=== PATIENT | male | born 1985 | race African-American/Black ===

== ENCOUNTER 2021-09-05 14:44 | Emergency (ER) | payer BC, SELFPAY ==
[2021-09-05 16:08] VITALS: BP 126/74; PULSE 93; RESP 16; TEMP 37.5; O2SAT 100
--- NOTE | 2021-09-05 17:31 | ED.URI ---
HPI - URI/Sore Throat General Chief Complaint: Upper Respiratory Infection Stated Complaint: Chest Tightness Time Seen by Provider: 09/05/21 17:31 Source: patient, RN notes reviewed and old records reviewed Mode of arrival: ambulatory Limitations: no limitations History of Present Illness HPI Narrative: 36 year old male who presents to [facility] care with complaints of being exposed to someone who is COVID positive on the day before [place] and he developed nasal drainage, sore throat and some cough with chest tightness on [place]. Patient has not been vaccinated for COVID or flu. Patient has not taken any over the counter medications for his symptoms. Patient does have history of tobacco abuse, he reports no dyspnea, no tachypnea noted with SAO2 100% on room air. Related Data Home Medications Medication Instructions Recorded Confirmed cyclobenzaprine 5 mg PO TID PRN 09/05/21 09/05/21 diazepam 5 mg PO BID PRN 09/05/21 09/05/21 quetiapine 25 mg PO HS 09/05/21 09/05/21 tadalafil 10 mg PO DAILY 09/05/21 09/05/21 Allergies Allergy/AdvReac Type Severity Reaction Status Date / Time No Known Allergies Allergy Verified 09/05/21 16:13 Review of Systems Review of Systems: CONSTITUTIONAL: Denies known fever, chills, or sweats. EYES: Denies visual changes, redness, or discharge. ENT:Positive for rhinorrhea, congestion, sore throat, no otalgia. CARDIOVASCULAR: Denies chest pain, palpitations, or edema.reports chest tightness with breathing. RESPIRATORY: Positive for cough denies dyspnea. GASTROINTESTINAL: Denies abdominal pain, nausea, vomiting, or diarrhea. GENITOURINARY: Denies dysuria or hematuria. SKIN: Denies rash or itching. MUSCULOSKELETAL: Denies back pain, joint pain, or myalgia. NEUROLOGIC: Denies headache, numbness, or weakness. PSYCHIATRIC: Positive for anxiety or depression. All systems reviewed & are unremarkable except as noted in HPI and below PMFSH Past Medical History Medical History (Updated 09/07/21 @ 11:40 by Lauren Borja NP) Anxiety Exposure to COVID-19 virus Surgical History Surgical History (Updated 09/07/21 @ 11:35 by Lauren Borja NP) No history of previous surgery Social History Social History (Updated 09/07/21 @ 11:35 by Lauren Borja NP) Smoking status: Current every day smoker Tobacco type: cigarettes Alcohol intake: unknown Substance use: unknown Living arrangements: with family Gender identity (if verbalized by the patient): Male Comments At time of signature, agree with nursing past medical, surgical, social and family history. There is no relevant family history pertinent to the presenting complaint Exam Narrative: GENERAL: Well-appearing, well-nourished, and in no acute distress. HEAD: Normocephalic, atraumatic. EYES: PERRLA and EOMI. ENT: Nares patent with clear rhinorrhea no epistaxis. Mucous membranes moist.TM's normal with good light reflex, throat red with no lesions or exudates or tonsil swelling post nasal drainage NECK: Supple.no lymphadenopathy CHEST: Clear to auscultation. No respiratory distress.dry cough with SAO2 100% on room air HEART: Regular rate and rhythm. No murmur heard. Normal peripheral pulses. ABDOMEN: Soft, nontender, nondistended, normal active bowel sounds. EXTREMITIES: Normal range of motion. No edema. SKIN: Warm, dry, no rash. NEURO: No focal deficits. Alert and oriented x3. Course Vital Signs Vital signs: Vital Signs Temperature 37.5 C 09/05/21 16:08 Pulse Rate 93 09/05/21 16:08 Respiratory Rate 16 09/05/21 16:08 Blood Pressure 126/74 09/05/21 16:08 Pulse Oximetry 100 09/05/21 16:08 Temperature 37.5 C 09/05/21 16:08 Pulse Rate 93 09/05/21 16:08 Respiratory Rate 16 09/05/21 16:08 Blood Pressure 126/74 09/05/21 16:08 Pulse Oximetry 100 09/05/21 16:08 MDM - URI/Sore Throat Differential Diagnosis Differential diagnosis: Likely upper respiratory infection, sinusitis, viral inf
--- NOTE | 2021-09-05 18:10 | ED.URI ---
HPI - URI/Sore Throat General Chief Complaint: Upper Respiratory Infection Stated Complaint: Chest Tightness Time Seen by Provider: 09/05/21 17:31 Source: patient, RN notes reviewed and old records reviewed Mode of arrival: ambulatory Limitations: no limitations Related Data Home Medications Medication Instructions Recorded Confirmed cyclobenzaprine 5 mg PO TID PRN 09/05/21 09/05/21 diazepam 5 mg PO BID PRN 09/05/21 09/05/21 quetiapine 25 mg PO HS 09/05/21 09/05/21 tadalafil 10 mg PO DAILY 09/05/21 09/05/21 Allergies Allergy/AdvReac Type Severity Reaction Status Date / Time No Known Allergies Allergy Verified 09/05/21 16:13 Review of Systems Review of Systems: CONSTITUTIONAL: Denies fever, chills, or sweats. EYES: Denies visual changes, redness, or discharge. ENT: Denies rhinorrhea, congestion, sore throat, or otalgia. CARDIOVASCULAR: Denies chest pain, palpitations, or edema. RESPIRATORY: Denies cough or dyspnea. GASTROINTESTINAL: Denies abdominal pain, nausea, vomiting, or diarrhea. GENITOURINARY: Denies dysuria or hematuria. SKIN: Denies rash or itching. MUSCULOSKELETAL: Denies back pain, joint pain, or myalgia. NEUROLOGIC: Denies headache, numbness, or weakness. PSYCHIATRIC: Denies anxiety or depression. All systems reviewed & are unremarkable except as noted in HPI and below PMFSH Comments At time of signature, agree with nursing past medical, surgical, social and family history. There is no relevant family history pertinent to the presenting complaint Exam Narrative: GENERAL: Well-appearing, well-nourished, and in no acute distress. HEAD: Normocephalic, atraumatic. EYES: PERRLA and EOMI. ENT: Nares clear, no rhinorrhea or epistaxis. Mucous membranes moist. NECK: Supple. CHEST: Clear to auscultation. No respiratory distress. HEART: Regular rate and rhythm. No murmur heard. Normal peripheral pulses. ABDOMEN: Soft, nontender, nondistended, normal active bowel sounds. EXTREMITIES: Normal range of motion. No edema. SKIN: Warm, dry, no rash. NEURO: No focal deficits. Alert and oriented x3. Course Vital Signs Vital signs: Vital Signs Temperature 37.5 C 09/05/21 16:08 Pulse Rate 93 09/05/21 16:08 Respiratory Rate 16 09/05/21 16:08 Blood Pressure 126/74 09/05/21 16:08 Pulse Oximetry 100 09/05/21 16:08 Temperature 37.5 C 09/05/21 16:08 Pulse Rate 93 09/05/21 16:08 Respiratory Rate 16 09/05/21 16:08 Blood Pressure 126/74 09/05/21 16:08 Pulse Oximetry 100 09/05/21 16:08 MDM - URI/Sore Throat Differential Diagnosis Differential diagnosis: Likely upper respiratory infection, viral infection and pharyngitis Medical Records Attestation: I reviewed the patient's medical records. Lab Data Attestation: I reviewed the patient's lab results. Lab results narrative: Strep negative Covid antigen negative Labs: Lab Results 09/05/21 Range/Units 17:41 POC SARS CoV-2 Ag Negative (Negative) Strep Screen Presumptive Negative *(Reference Range: Negative)* Critical Care Time Critical Care Time Critical Care Time: No Discharge Plan Discharge Clinical Impression: Upper respiratory infection Patient Disposition: Home, Self-Care Condition: Stable Instructions: Antibiotic Form Additional Instructions: Increase fluids especially juices and water [id number] cough and cold medicine of your choice for your symptoms Tylenol ibuprofen for any fever pain Zyrtec or Claritin include Sudafed while having symptoms Steroids as directed--take with food heat to the face 20-30 minutes 4-6 times a day for pain Salt water gargles, throat lozenges or throat sprays as desired PCR Covid through drive-through If your symptoms persist, change or worsen significantly before you can contact your personal physician then please, without delay, go to the emergency department for further evaluation. Follow-up with PCP
== END 2021-09-05 18:23 | disposition home or self-care (01) ==
PROVIDERS: Emergency Provider Registered Nurse; PCP Nurse Practitioner Adult Health
DX: J06.9 Acute upper respiratory infection, unspecified (principal); Z20.822 Contact with and (suspected) exposure to COVID-19; F17.200 Nicotine dependence, unspecified, uncomplicated
CPT/HCPCS: 87081; 87426; 87880; 99213; C9803; G0463

== ENCOUNTER → 2021-09-08 01:09 | Outpatient (CLI) | payer BC, SELFPAY ==
[2021-09-08 20:43] LABS: SARS-CoV-2 RNA PCR Positive
== END ==
PROVIDERS: PCP Nurse Practitioner Adult Health; Visit Provider Registered Nurse
DX: U07.1 COVID-19 (principal)
CPT/HCPCS: C9803; U0003; U0005

== ENCOUNTER 2022-01-05 13:17 | Emergency (ER) | payer BC, SELFPAY ==
[2022-01-05 13:26] VITALS: BP 101/88; PULSE 100; RESP 16; TEMP 36.6; O2SAT 96
--- NOTE | 2022-01-05 13:51 | ED.UPPEXIN ---
HPI - Extremity Injury (Upper) General Chief Complaint: Extremity Injury, Upper Stated Complaint: right sided shoulder pain Time Seen by Provider: 01/05/22 13:19 History of Present Illness HPI narrative: 36-year-old male presents to the emergency room for evaluation of right shoulder pain that has been present for 5 years. Patient reports history of shoulder dislocation approximately 6 years ago, and was following orthopedics for chronic shoulder pain when he abruptly. 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 Patient states shoulder pain is worse with lifting arm up over his head and with hyperextension. Patient states that he has received joint injections in the past and achieved pain relief with that. Related Data Home Medications Medication Instructions Recorded Confirmed cyclobenzaprine mg 01/05/22 diazepam 01/05/22 quetiapine 01/05/22 Allergies Allergy/AdvReac Type Severity Reaction Status Date / Time No Known Allergies Allergy Mild Verified 01/05/22 13:30 Review of Systems Review of Systems: CONSTITUTIONAL: Denies fever, chills, or sweats. EYES: Denies visual changes, redness, or discharge. ENT: Denies rhinorrhea, congestion, sore throat, or otalgia. CARDIOVASCULAR: Denies chest pain, palpitations, or edema. RESPIRATORY: Denies cough or dyspnea. GASTROINTESTINAL: Denies abdominal pain, nausea, vomiting, or diarrhea. GENITOURINARY: Denies dysuria or hematuria. SKIN: Reports painful lump on right gluteal muscle MUSCULOSKELETAL: Reports right shoulder pain NEUROLOGIC: Denies headache, numbness, dizziness, or weakness. PSYCHIATRIC: Denies anxiety or depression. Exam Narrative: GENERAL: Well-appearing, well-nourished, and in no acute distress. HEAD: Normocephalic, atraumatic. EYES: PERRLA and EOMI. ENT: Nares clear, no rhinorrhea or epistaxis. Mucous membranes moist. Oropharynx without tonsillar hypertrophy exudate or other lesions. Bilateral TMs pearly self nonbulging NECK: Supple. No adenopathy or masses. No carotid bruits or JVD CHEST: Clear to auscultation. No respiratory distress. No wheezes rales or rhonchi HEART: Regular rate and rhythm. No murmur heard. Normal peripheral pulses. ABDOMEN: Soft, nontender, nondistended, normal active bowel sounds. EXTREMITIES: right shoulder: Tenderness to the supraspinatus muscle; pain with extension; positive Juarez and Neer test; no bony abnormality; neurovascular is intact distally SKIN: Small, pea-sized, indurated abscess to right gluteal. NEURO: No focal deficits. Alert and oriented x3. PSYCH: Normal mood and affect. Course Vital Signs Vital signs: Vital Signs Temperature 36.6 C 01/05/22 13:26 Pulse Rate 100 01/05/22 13:26 Respiratory Rate 16 01/05/22 13:26 Blood Pressure 101/88 01/05/22 13:26 Pulse Oximetry 96 01/05/22 13:26 Temperature 36.6 C 01/05/22 13:26 Pulse Rate 100 01/05/22 13:26 Respiratory Rate 16 01/05/22 13:26 Blood Pressure 101/88 01/05/22 13:26 Pulse Oximetry 96 01/05/22 13:26 Discharge Plan Discharge Clinical Impression: Impingement syndrome of right shoulder, Abscess, gluteal, right Patient Disposition: Home, Self-Care Condition: Stable Instructions: Antibiotic Form Prescriptions: New prednisone 20 mg tablet 40 mg PO DAILY 5 Days Qty: 10 RF: 0 methocarbamol 500 mg tablet 500 mg PO TID Qty: 14 RF: 0 amoxicillin-pot clavulanate 875-125 mg tablet 1 tablet PO Q12H Qty: 14 RF: 0 No Action quetiapine 25 mg tablet RF: 0 cyclobenzaprine 10 mg tablet RF: 0 diazepam 5 mg tablet RF: 0 Follow-up/Referrals: Johann Negro MD [Physician] - Hewitt,JAMES Plata [Primary Care Provider] - Time of Disposition: 14:00
== END 2022-01-05 14:40 | disposition home or self-care (01) ==
LOC: ANHED 14:18
PROVIDERS: Emergency Provider Nurse Practitioner Family; PCP Nurse Practitioner Adult Health
DX: M75.41 Impingement syndrome of right shoulder (principal); L02.31 Cutaneous abscess of buttock
CPT/HCPCS: 96372; 99283; J1100

== ENCOUNTER 2022-01-23 12:10 | Emergency (ER) | payer BC, SELFPAY ==
--- NOTE | ~2022-01-23 | XR_ITS ---
EXAMINATION: XR wrist RT min 3V INDICATION: Right wrist pain TECHNIQUE: Four views of the right wrist are obtained. COMPARISON: None available FINDINGS: There is no fracture, dislocation, or subluxation. The bones, soft tissues, and joint space s are normal. IMPRESSION: 1. No acute osseous abnormality. Reviewed, dictated and finalized at location A.
[2022-01-23 12:12] VITALS: BP 126/71; PULSE 98; RESP 16; TEMP 36.8; O2SAT 97
--- NOTE | 2022-01-23 12:44 | ED.UPPEXIN ---
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 Patient also complaining of itching rash different part of his body, similar to every year at this time of the. History of contact dermatitis. The rash start 2 days ago. He denies any fever, chills, nausea, vomiting Related Data Home Medications Medication Instructions Recorded Confirmed cyclobenzaprine mg 01/05/22 diazepam 01/05/22 quetiapine 01/05/22 Allergies Allergy/AdvReac Type Severity Reaction Status Date / Time No Known Allergies Allergy Mild Verified 01/05/22 13:30 Review of Systems Review of Systems: All systems reviewed & are unremarkable except as noted in HPI and below Exam Narrative: General appearance: Well-developed, well-nourished Skin: Normal color, maculopapular rash upper extremities, back of the neck and front of the chest. Head: Normocephalic, nontraumatic Eyes: Clear conjunctiva ENT: Oropharynx normal, ears normal, nose normal Neck: Supple, nontender Chest and respiratory: Airway patent, no respiratory distress, no accessory muscle use Heart: Regular rate/rhythm Abdomen: Soft, nontender, no organomegaly, quiet bowel sounds Vascular: Normal peripheral pulses, normal capillary refill. 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 No acute osseous abnormality. Critical Care Time Critical Care Time Critical Care Time: No Discharge Plan Discharge Clinical Impression: Left wrist sprain Qualifiers: Encounter type: subsequent encounter Qualified Code(s): S63.502D - Unspecified sprain of left wrist, subsequent encounter Contact dermatitis Qualifiers: Contact dermatitis type: unspecified Contact dermatitis trigger: unspecified trigger Qualified Code(s): L25.9 - Unspecified contact dermatitis, unspecified cause Patient Disposition: Home, Self-Care Condition: Stable Instructions: Antibiotic Form, Contact Dermatitis (ED), Splint Care (ED), Wrist Sprain (ED) Additional Instructions: Return if symptoms are worsening , call your family physician for appointment, take Tylenol as as needed for aches and pain, continue home medications. Keep right hand elevated. Get rest of splint at [facility]. Prescriptions: New prednisone 20 mg tablet 40 mg PO DAILY 5 Days Qty: 10 RF: 0 Zyrtec 10 mg capsule 10 mg PO DAILY PRN (Reason: allergy symptoms) Qty: 10 RF: 0 triamcinolone acetonide 0.5 % ointment 1 applic topical BID Qty: 45 RF: 0 No Action quetiapine 25 mg tablet RF: 0 cyclobenzaprine 10 mg tablet RF: 0 diazepam 5 mg tablet RF:
== END 2022-01-23 13:25 | disposition home or self-care (01) ==
PROVIDERS: Emergency Provider Emergency Medicine; PCP Nurse Practitioner Adult Health
DX: S63.502A Unspecified sprain of left wrist, initial encounter (principal); L25.9 Unspecified contact dermatitis, unspecified cause; X50.9XXA Other and unspecified overexertion or strenuous movements or postures, initial encounter
CPT/HCPCS: 73110; 99283

== ENCOUNTER 2022-05-09 17:19 | Emergency (ER) | payer BC, SELFPAY ==
[2022-05-09 17:24] VITALS: BP 115/65; PULSE 86; RESP 16; TEMP 37.3; O2SAT 97
--- NOTE | 2022-05-09 17:47 | ED.SKABFB ---
HPI - Skin/Abscess/Foreign Bdy General Chief complaint: Skin/Abscess/Foreign Body Stated complaint: rash all over Time Seen by Provider: 05/09/22 17:47 Source: patient Mode of arrival: ambulatory Limitations: no limitations History of Present Illness HPI narrative: 36-year-old male presented for complaint of rash to bilateral arms and spreading to shoulders over the past week. He reports he works outside and states he has had similar rashes in the past when working outside. He denies any other skin lesions, denies lip, tongue, throat swelling or itching, shortness of breath or wheezing. Has not taken anything for symptoms. Related Data Home Medications Medication Instructions Recorded Confirmed cyclobenzaprine 5 mg tablet 5 mg PO TID PRN Muscle Spasm 09/05/21 05/09/22 quetiapine 25 mg tablet 25 mg PO HS 09/05/21 05/09/22 Allergies Allergy/AdvReac Type Severity Reaction Status Date / Time No Known Allergies Allergy Verified 05/09/22 17:45 Review of Systems Review of Systems: CONSTITUTIONAL: Denies body aches, fever, chills, or sweats. EYES: Denies visual changes, redness, or discharge. CARDIOVASCULAR: Denies chest pain, palpitations, or edema. RESPIRATORY: Denies cough or dyspnea. SKIN: Reports rash to arms MUSCULOSKELETAL: Denies back pain, joint pain, or myalgia. NEUROLOGIC: Denies headache PMFSH Past Medical History Medical History Anxiety Exposure to COVID-19 virus Surgical History Surgical History No history of previous surgery Social History Social History Smoking status: Current every day smoker Tobacco type: cigarettes Alcohol intake: unknown Substance use: unknown Gender identity (if verbalized by the patient): Male Comments At time of signature, I have reviewed and agree with nursing past medical, surgical, social and family history unless otherwise noted. Please see nursing chart for further information. There is no relevant family history pertinent to the presenting complaint Exam Narrative: GENERAL: Well-appearing EYES: conjunctivae clear, and EOMI. ENT: Mucous membranes moist. Oropharynx without edema, erythema or lesions. CHEST: Clear to auscultation. HEART: Regular rate and rhythm. SKIN: Warm, dry. Erythematous papular lesions to bilateral upper extremities consistent with heat rash NEURO: Alert and oriented x3. Course Course Emergency Course: Patient is aware of diagnosis, understands and agrees to treatment plan. Anticipatory guidance given. Patient agrees to follow-up as directed and is aware of reasons to seek care at the emergency department. Portions of this record may have been created with voice recognition software Level of Care: Express Care Visit Vital Signs Vital signs: Vital Signs Temperature 99.1 F 05/09/22 17:24 Pulse Rate 86 05/09/22 17:24 Respiratory Rate 16 05/09/22 17:24 Blood Pressure 115/65 05/09/22 17:24 Pulse Oximetry 97 05/09/22 17:24 Oxygen Delivery Room Air 05/09/22 17:24 Temperature 99.1 F 05/09/22 17:24 Pulse Rate 86 05/09/22 17:24 Respiratory Rate 16 05/09/22 17:24 Blood Pressure 115/65 05/09/22 17:24 Pulse Oximetry 97 05/09/22 17:24 Oxygen Delivery Room Air 05/09/22 17:24 Reviewed MDM - Skin/Abscess/Foreign Bdy MDM Narrative Medical decision making narrative: Does not appear at this time to be erythema multiforme, bullous, SJS, TEN, monkeypox, RMSF, or Lyme disease; patient looks well. Symptoms and PE c/w heat rash. Advised supportive measures. Instructed patient to go to nearest ER immediately for any worsening symptoms including but not limited to: fever, spreading rash, pain, sore throat, headache, dizziness, chest pain, trouble breathing, or any symptoms concerning to the patient. Differential Diagnosi
== END 2022-05-09 18:07 | disposition home or self-care (01) ==
PROVIDERS: Emergency Provider Nurse Practitioner Family; PCP Nurse Practitioner Adult Health
DX: L30.9 Dermatitis, unspecified (principal); F41.9 Anxiety disorder, unspecified; Z86.16 Personal history of COVID-19; F17.210 Nicotine dependence, cigarettes, uncomplicated
CPT/HCPCS: 99213; G0463

== ENCOUNTER 2022-05-18 17:03 | Emergency (ER) | payer BC, SELFPAY ==
[2022-05-18 17:10] VITALS: BP 124/77; PULSE 112; RESP 16; TEMP 37.7; O2SAT 100
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
== END 2022-05-18 18:05 | disposition home or self-care (01) ==
PROVIDERS: Emergency Provider Nurse Practitioner Family; PCP Nurse Practitioner Adult Health
DX: L02.31 Cutaneous abscess of buttock (principal); L30.9 Dermatitis, unspecified; F17.210 Nicotine dependence, cigarettes, uncomplicated; Z86.16 Personal history of COVID-19
CPT/HCPCS: 99213; G0463

== ENCOUNTER 2022-08-15 12:26 | Emergency (ER) | payer BC, SELFPAY ==
[2022-08-15 12:44] VITALS: BP 118/73; PULSE 77; RESP 16; TEMP 37; O2SAT 100
--- NOTE | 2022-08-15 15:26 | ED.SKABFB ---
HPI - Skin/Abscess/Foreign Bdy General Chief complaint: Skin/Abscess/Foreign Body Stated complaint: rash or infection butt crack Time Seen by Provider: 08/15/22 15:26 Source: patient, RN notes reviewed and old records reviewed Mode of arrival: ambulatory Limitations: no limitations History of Present Illness HPI narrative: 37 year old male who presents to [facility] with complaints of red rash with itching for the past 1 to 1 1/2 weeks to crack of buttocks down to groin region. Patient reports that he was ill with cold symptoms and fevers prior to rash starting had been sweating a lot and does continue with cough Patient reports that he has applied cortisone cream and also gold saez without resolution of rash, denies any present fevers, chills or sweats. No one else in household has rash. MD complaint: rash Onset (ago): week(s) (1 to 1 1/2) Treatments prior to arrival: other (gold saez and cortisone ointment) Related Data Home Medications Medication Instructions Recorded Confirmed diazepam 10 mg tablet 10 mg PO BID 08/15/22 08/15/22 tadalafil 10 mg tablet 10 mg PO DAILY PRN Erectile 08/15/22 08/15/22 Dysfunction Allergies Allergy/AdvReac Type Severity Reaction Status Date / Time No Known Allergies Allergy Verified 08/15/22 14:14 Review of Systems Review of Systems: CONSTITUTIONAL: Denies fever, chills, or sweats. CARDIOVASCULAR: Denies chest pain, palpitations, or edema, RESPIRATORY: Persistent cough denies dyspnea. SKIN: Reports red raised rash to crack of buttock down to genitals that is itchy MUSCULOSKELETAL: Denies joint pain or myalgia. NEUROLOGIC: Denies headache, numbness, or weakness. All systems reviewed & are unremarkable except as noted in HPI and below PMFSH Past Medical History Medical History Anxiety Exposure to COVID-19 virus Surgical History Surgical History No history of previous surgery Social History Social History Smoking status: Current every day smoker Tobacco type: cigarettes Alcohol intake: unknown Substance use: unknown Gender identity (if verbalized by the patient): Male Comments At time of signature, agree with nursing past medical, surgical, social and family history. There is no relevant family history pertinent to the presenting complaint Exam Narrative: GENERAL: Well-appearing, well-nourished, and in no acute distress. HEAD: Normocephalic, atraumatic. EYES: PERRLA, conjunctivae clear, and EOMI. ENT: Mucous membranes moist. Oropharynx without edema, erythema or lesions. NECK: Supple. No lymphadenopathy CHEST: Clear to auscultation. No respiratory distress.persistent cough which is dry SAO2 100% on room air HEART: Regular rate and rhythm. SKIN: Warm, dry.? red raised rash that is itchy from crack at buttock down to genitals raw feeling no weeping of skin or drainage noted. NEURO:? Alert and oriented x3. PSYCH: Normal mood and affect Course Course Emergency Course: Patient is aware of diagnosis, understands and agrees to treatment plan.? Anticipatory guidance given.? Patient agrees to follow-up as directed and is aware of reasons to seek care at the emergency department. Portions of this record may have been created with voice recognition software Level of Care: Express Care Visit Vital Signs Vital signs: Vital Signs Temperature 37.0 C 08/15/22 12:44 Pulse Rate 77 08/15/22 12:44 Respiratory Rate 16 08/15/22 12:44 Blood Pressure 118/73 08/15/22 12:44 Pulse Oximetry 100 08/15/22 12:44 Oxygen Delivery Room Air 08/15/22 12:44 Temperature 37.0 C 08/15/22 12:44 Pulse Rate 77 08/15/22 12:44 Respiratory Rate 16 08/15/22 12:44 Blood Pressure 118/73 08/15/22 12:44 Pulse Oximetry 100 08/15/22 12:44 Oxygen Delivery Room Air 08/15/22 12:4
== END 2022-08-15 15:49 | disposition home or self-care (01) ==
PROVIDERS: Emergency Provider Registered Nurse; PCP Nurse Practitioner Adult Health
DX: J06.9 Acute upper respiratory infection, unspecified (principal); L30.9 Dermatitis, unspecified; F17.210 Nicotine dependence, cigarettes, uncomplicated; F41.9 Anxiety disorder, unspecified
CPT/HCPCS: 99213; G0463

== ENCOUNTER 2023-07-29 08:27 | Outpatient (CLI) | payer OTHER, SELFPAY ==
[2023-07-29 19:21] LABS: Alanine Aminotransferase 43 U/L (6-50); Albumin Level 4.3 g/dL (3.5-5.1); Alkaline Phosphatase 59 U/L (38-126); Anion Gap 9 mmol/L (8-16); Aspartate Amino Transferase 63 U/L (17-59); Bilirubin,Total 0.5 mg/dL (0.2-1.3); Blood Urea Nitrogen 15 mg/dL (9-20); Calcium 9.1 mg/dL (8.4-10.2); Carbon Dioxide 27 mmol/L (22-30); Chloride 105 mmol/L (98-107); Cholesterol 209 mg/dL (0-200); Estimated Glomerular Filt Rate > 60; Glucose 101 mg/dL (65-110); HDL Direct 32 mg/dL; Sodium 141 mmol/L (137-145); Triglycerides 102 mg/dL (<150)
[2023-07-29 19:33] LABS: LDL Cholesterol Direct 139 mg/dL
[2023-07-29 20:38] LABS: Hematocrit 47.8 % (42.0-52.0); Mean Corpuscular HGB Conc 31.4 g/dl (32-36); Mean Corpuscular Hemoglobin 30.7 pg (26-34); Mean Corpuscular Volume 97.8 fl (80-100); Mean Platelet Volume 10.9 fl (7.4-10.4); Platelet Count Result 248 k/mm3 (150-375); Red Blood Count 4.89 M/mm3 (4.6-6.20); Red Cell Distribution Width 12.9 % (11.5-14.5); White Blood Count 7.2 K/mm3 (4.5-10.0)
[2023-08-01 11:39] LABS: Testosterone Free 83.4 pg/mL (46.0-224.0); Testosterone Total 763 ng/dL (250-1100)
== END 2023-07-29 08:28 | disposition home or self-care (01) ==
LOC: ANHBWCLAB 08:29
PROVIDERS: PCP Nurse Practitioner Adult Health; Visit Provider Nurse Practitioner Adult Health
DX: R53.83 Other fatigue (principal); Z13.9 Encounter for screening, unspecified
CPT/HCPCS: 36415; 80053; 80061; 84402; 84403; 84443; 85027

== ENCOUNTER 2024-01-13 13:21 | Outpatient (CLI) | payer OTHER, SELFPAY ==
[2024-01-16 10:13] LABS: Alphahydroxymidazolam NEGATIVE ng/mL (<50); Alphahydroxytriazolam NEGATIVE ng/mL (<50); Amphetamines NEGATIVE ng/mL (<500); Barbiturates NEGATIVE ng/mL (<300); Benzodiazepines POSITIVE ng/mL (<100); Cocaine Metabolite NEGATIVE ng/mL (<150); Hydroxyethylflurazepam NEGATIVE ng/mL (<50); Lorazepam NEGATIVE ng/mL (<50); Marijuana Metabolite 156 ng/mL (<5); Methadone Metabolite NEGATIVE ng/mL (<100); Opiates NEGATIVE ng/mL (<100); Oxidant NEGATIVE mcg/mL (<200); Temazepam NEGATIVE ng/mL (<50); pH 7.9 (4.5-9.0)
== END 2024-01-13 13:22 | disposition home or self-care (01) ==
LOC: ANHBWCLAB 13:22
PROVIDERS: PCP Nurse Practitioner Adult Health; Visit Provider Nurse Practitioner Adult Health
DX: Z79.899 Other long term (current) drug therapy (principal)
CPT/HCPCS: 80299

== ENCOUNTER 2024-02-18 10:03 | Outpatient (CLI) | payer OTHER, SELFPAY ==
[2024-02-18 19:05] LABS: Alanine Aminotransferase 25 U/L (6-50); Albumin Level 4.4 g/dL (3.5-5.1); Alkaline Phosphatase 55 U/L (38-126); Anion Gap 6 mmol/L (4-12); Aspartate Amino Transferase 61 U/L (17-59); Bilirubin,Total 0.5 mg/dL (0.2-1.3); Blood Urea Nitrogen 17 mg/dL (9-20); Calcium 8.8 mg/dL (8.4-10.2); Carbon Dioxide 28 mmol/L (22-30); Chloride 106 mmol/L (98-107); Cholesterol 194 mg/dL (0-200); Estimated Glomerular Filt Rate > 60; Glucose 103 mg/dL (65-110); HDL Direct 34 mg/dL; Sodium 140 mmol/L (137-145); Triglycerides 78 mg/dL (<150)
[2024-02-18 19:17] LABS: LDL Cholesterol Direct 136 mg/dL
[2024-02-18 19:48] LABS: Hemoglobin 15.2 g/dL (14.0-18.0); Mean Corpuscular HGB Conc 32.3 g/dl (32-36); Mean Corpuscular Hemoglobin 32.1 pg (26-34); Mean Corpuscular Volume 99.2 fl (80-100); Mean Platelet Volume 10.7 fl (7.4-10.4); Platelet Count Result 242 k/mm3 (150-375); Red Blood Count 4.74 M/mm3 (4.6-6.20); Red Cell Distribution Width 12.8 % (11.5-14.5); White Blood Count 9.7 K/mm3 (4.5-10.0)
[2024-02-18 20:11] LABS: Folic Acid 8.4 ng/mL (2.76->20)
== END 2024-02-18 10:04 | disposition home or self-care (01) ==
LOC: ANHBWCLAB 10:06
PROVIDERS: PCP Nurse Practitioner Adult Health; Visit Provider Nurse Practitioner Adult Health
DX: M79.673 Pain in unspecified foot (principal); Z13.9 Encounter for screening, unspecified; F39 Unspecified mood [affective] disorder
CPT/HCPCS: 36415; 80053; 80061; 82607; 82746; 84443; 84550; 85027

== ENCOUNTER 2024-07-01 09:57 | Emergency (ER) | payer OTHER, SELFPAY ==
[2024-07-01 10:05] VITALS: BP 112/67; PULSE 79; RESP 18; TEMP 37.3; O2SAT 100
--- NOTE | 2024-07-01 10:25 | ED.GENADULT ---
HPI - General Adult General Chief complaint: Skin/Abscess/Foreign Body Stated complaint: Hemorroids Time Seen by Provider: 07/01/24 10:16 Source: patient and RN notes reviewed Mode of arrival: ambulatory Limitations: no limitations History of Present Illness HPI narrative: Patient presents today with a 4 to five-day history of an external hemorrhoid. Denies bleeding but does report some pain and itching. He has been using some topical cream without relief and currently rates his pain 8/10. He has had hemorrhoids in the past. He has been doing Sitz baths as well without relief. States his stools started out are but have softened a little bit. Related Data Allergies Allergy/AdvReac Type Severity Reaction Status Date / Time No Known Allergies Allergy Verified 11/05/23 13:03 Review of Systems Review of Systems: CONSTITUTIONAL: Denies body aches, fever, chills, or sweats. EYES: Denies visual changes, redness, or discharge. ENT: Denies rhinorrhea, congestion, sore throat, or otalgia. CARDIOVASCULAR: Denies chest pain, palpitations, or edema. RESPIRATORY: Denies cough or dyspnea. GASTROINTESTINAL: Denies abdominal pain, nausea, vomiting, or diarrhea. + hemorrhoid GENITOURINARY: Denies dysuria or hematuria. SKIN: Denies rash, itching, or wounds. MUSCULOSKELETAL: Denies back pain, joint pain, or myalgia. NEUROLOGIC: Denies headache, numbness, tingling, or weakness. PSYCH: Denies depression or anxiety. [facility] Past Medical History Medical History Allergies Anxiety Exposure to COVID-19 virus Headache Migraine Surgical History Surgical History No history of previous surgery Family History Family History Father Depression Thyroid cancer Mother Disorder of thyroid History of ETOH abuse Social History Social History Smoking status: Current every day smoker Tobacco type: cigarettes Alcohol intake: current Alcohol use details: Beer Vodka Substance use: unknown Lack of Transportation: No Lack of Food: Sometimes True Current Housing: I Have Housing Concerned About Future Housing: No Difficulty Paying Gas/Electric Bills: YES Difficulty Paying for Meds: No Currently Unemployed: YES Education: High School Diploma/GED Difficulty w/ Childcare or Family Care: No Living arrangements: with family Occupation/Education: occupation 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 HEAD: Normocephalic, atraumatic. EYES: EOMI. No redness or drainage. Conjunctivae normal. ENT: Mucous membranes pink and moist. NECK: Normal AROM. CHEST: No respiratory distress. GI: Approx 1.5cm non thrombosed hemorrhoid. Tender. Chaperoned by Kiki Hurst RN EXTREMITIES: Normal range of motion. No edema. SKIN: Warm, dry, no rash. Capillary refill normal. Normal skin turgor. NEURO: No focal deficits. Alert and oriented x3. Gait steady. PSYCH: Normal affect. No signs of depression or anxiety. Course Course Level of Care: Express Care Visit Vital Signs Vital signs: Vital Signs Temperature 99.2 F 07/01/24 10:05 Pulse Rate 79 07/01/24 10:05 Respiratory Rate 18 07/01/24 10:05 Blood Pressure 112/67 07/01/24 10:05 Pulse Oximetry 100 07/01/24 10:05 Oxygen Delivery Room Air 07/01/24 10:05 Temperature 99.2 F 07/01/24 10:05 Pulse Rate 79 07/01/24 10:05 Respiratory Rate 18 07/01/24 10:05 Blood Pressure 112/67 07/01/24 10:05 Pulse Oximetry 100 07/01/24 10:05 Oxygen Delivery Room Air 07/01/24 10:05 Reviewed Medical Decision [place]
== END 2024-07-01 10:37 | disposition home or self-care (01) ==
PROVIDERS: Emergency Provider Nurse Practitioner; PCP Nurse Practitioner Adult Health
DX: K64.5 Perianal venous thrombosis (principal); F17.210 Nicotine dependence, cigarettes, uncomplicated; Z86.16 Personal history of COVID-19
CPT/HCPCS: 99213; G0463

== ENCOUNTER 2024-08-19 15:35 | Outpatient (CLI) | payer OTHER, SELFPAY ==
[2024-08-19 18:32] LABS: Hematocrit 44.1 % (42.0-52.0); Hemoglobin 15.1 g/dL (14.0-18.0); Mean Corpuscular HGB Conc 34.2 g/dl (32-36); Mean Corpuscular Hemoglobin 33.5 pg (26-34); Mean Corpuscular Volume 97.8 fl (80-100); Mean Platelet Volume 11.7 fl (7.4-10.4); Platelet Count Result 218 k/mm3 (150-375); Red Blood Count 4.51 M/mm3 (4.6-6.20); Red Cell Distribution Width 13.6 % (11.5-14.5); White Blood Count 9.2 K/mm3 (4.5-10.0)
[2024-08-19 19:25] LABS: Alanine Aminotransferase 23 U/L (6-50); Albumin Level 4.8 g/dL (3.5-5.1); Alkaline Phosphatase 63 U/L (38-126); Anion Gap 6 mmol/L (4-12); Aspartate Amino Transferase 34 U/L (17-59); Bilirubin,Total 0.8 mg/dL (0.2-1.3); Blood Urea Nitrogen 10 mg/dL (9-20); Calcium 9.5 mg/dL (8.4-10.2); Carbon Dioxide 30 mmol/L (22-30); Chloride 102 mmol/L (98-107); Estimated Glomerular Filt Rate > 60; Glucose 94 mg/dL (65-110); Potassium 3.6 mmol/L (3.4-5.0); Sodium 138 mmol/L (137-145)
[2024-08-19 19:47] LABS: Thyroid Stimulating Hormone 0.489 uIU/mL (0.465-4.680)
== END 2024-08-19 15:36 | disposition home or self-care (01) ==
LOC: ANHBWCLAB 15:37
PROVIDERS: PCP Nurse Practitioner Adult Health; Visit Provider Nurse Practitioner Adult Health
DX: Z13.29 Encounter for screening for other suspected endocrine disorder (principal); R63.4 Abnormal weight loss
CPT/HCPCS: 36415; 80053; 84443; 85027

== ENCOUNTER 2024-12-17 12:39 | Outpatient (CLI) | payer OTHER, SELFPAY ==
--- OUTSIDE RECORDS SUMMARY | 2024-12-17 12:57 | XMS_ITS | Clinical Summary ---
Author Organization [facility] Address [address] [place] [address] Phone Care Team Providers Care Senior Cost Analyst Name Role Phone Sherlyn Mckeon APRN Primary Care Provider [phone] Allergies No known active allergies Medications busPIRone (BUSPAR) 10 MG Tablet Take 10 mg by mouth 3 times daily. Active QUEtiapine Fumarate (SEROQUEL) 50 MG Tablet Take 50 mg by mouth as needed. Active Citalopram Hydrobromide (CELEXA PO) Take by mouth as needed. Active naproxen (NAPROSYN) 500 MG Tablet Take 1 Tablet by mouth 2 times daily as needed for Mild or more severe pain. 20 Tablet 1 Active HYDROcodone-aceta minophen (NORCO) 5-325 MG Tablet Take 1 Tablet by mouth every 6 hours as needed for Moderate or more severe pain. 10 Tablet 1 Active fluticasone (FLONASE) 50 MCG/ACT Suspension 1 Reardan by Nasal route daily. Use in each nostril as directed. 9.9 mL 4 Active ibuprofen (MOTRIN) 800 MG Tablet Take 1 Tablet by mouth every 8 hours as needed for Moderate or more severe pain. 20 Tablet 4 Active chlorhexidine (PERIDEX) 0.12 % Solution 15 mL by Swish & Spit route 2 times daily. 120 mL Active Immunizations Immunization Administration Dates Next Due TDAP Vaccine 03/27/2021 Social History Tobacco Use Types Packs/Day Years Used Date Smoking Tobacco: Every Day Cigarettes Smokeless Tobacco: Never Tobacco Cessation:Ready to Q uit: Not Asked; Counseling Given: Not Answered Alcohol Use Standard Drinks/Week Comments Yes 45 (1 standard drink = 0.6 oz pu re alcohol) Sex and Gender Information Value Date Recorded Sex Assigned at Male 08/30/2024 3:56 AM ORDER CALLER Legal Sex Male 7:58 PM CDT Gender Identity Male 08/30/2024 3:56 AM ORDER CALLER Sexual Orientation Not on file Last Filed Vital Signs Vital Sign Reading Time Taken Comments Blood Pressure 119/75 09/01/2024 12:44 PM ORDER CALLER Pulse 93 09/01/2024 12:44 PM ORDER CALLER Temperature 37.1 C (98.7 F) 09/01/2024 12:44 PM ORDER CALLER Respiratory Rate 16 09/01/2024 12:44 PM ORDER CALLER Oxygen Saturation 99% 09/01/2024 12:44 PM ORDER CALLER Inhaled Oxygen Concentration - - Weight 68 kg (150 lb) 09/01/2024 12:44 PM ORDER CALLER Height 172.7 cm (5' 8 ) 09/01/2024 12:44 PM ORDER CALLER Body Mass Index 22.81 09/01/2024 12:44 PM ORDER CALLER Plan of Treatment Health Maintenance Due Date Last Done Comments Hepatitis C Virus (HCV) Screening 1986 Hepatitis B Immunization (1 of 3 - 19+ 3-dose series) 2005 Pneumococcal Immunization Combined (1 of 2 - PCV) 2005 Influenza Immunization (#1) 2024 SARS-COV-2 Immunization ( season) 2024 Td Immunization Every 10 Yea rs (Adults With 1 Tdap) 03/27/2031 03/27/2021 Respiratory Syncytial Virus (RSV) Immunization (Adult) (1 - 1-dose 75+ series) 2061 DTaP/Tdap/Td Immunization Discontinued 03/27/2021 Meningococcal Immunization (ACWY) Aged Out No longer eligible based on patient's age to complete this topic Rotavirus Immunization Aged Out No lo nger eligible based on patient's age to complete this topic Insurance MEDICAID [place] Care Teams Senior Cost Analyst Relationship Specialty Start Date End Date Sherlyn Mckeon APRN PCP - General Advanced Practice Nurse 03/27/21
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
--- OUTSIDE RECORDS SUMMARY | 2024-12-17 12:57 | XMS_ITS | CONTINUITY OF CARE DOCUMENT ---
Author Name emili mock Address Unknown Organization [facility] Address [address] [address] [place] [address] Phone [phone] Care Team Providers Care Chick Sexer Name Role Phone Alona PERALTA, El Unavailable [phone] PROBLEMS Condition Status Date Provider Notes Vitamin D deficiency active El Quijano IRBBB active El Sage MD Insomnia active El Sage MD Anxiety disorder active El Sage MD BACK PAIN;CHRONIC active El Sage MD Tobacco abuse active El Sage MD Syncope active El Sage MD ETOH active El Sage MD ? Sleep apnea active El Sage MD ENCOUNTERS Date Type Provider Location Encounter Diag nosis - In-person encounter Office Visit El Sage MD [place] [facility] IRBBBInsomniaAnxiety disorderBACK PAIN;CHRONICTobacco abuseSyncopeETOH? Sleep apnea VITAL SIGNS Date Observation Value Provider blood pressure, diastolic 70 mm[Hg] Ángel Engel RN blood pressure, systolic 104 mm[Hg] Dedrick Engel RN Body Mass Index (Ratio) 24.25 kg/m2 Jere Sage MD blood pressure, resting No Che Amato blood pressure, diastolic 78 mm[Hg] Agnes Amato blood pressure, systolic 136 mm[Hg] Alla Amtao oxygen saturation, oximetry 98 % Rich Amato respiratory rate E&M 16 /min Angella Amato pulse rate 110 /min Rich arshad weight E&M 169 [lb_av] Rich arshad height E&M 70 [in_i] Rich arshad ALLERGIES Allergy Name Onset Date Reaction Criticality Status SEASONAL High Criticality active RESULTS Date Observation Value Provider Reference Range Interpretation Location folate, serum 6.5 NG/MLM [facility] 4.4 - 31.0 vitamin b12, serum 916.6 pg/mL [facility] 211.0 - 946.0 very low density lipoproteins 25.6 mg/dL [facility] 5.0 - 40.0 LDL/HDL (low-density lipoprotein/high- density lipoprotein) ratio 2.5 RATIO [facility] - lipoprotein, beta, serum, point, quantitative, calculated 114.4 (?) [facility] 0.0 - 100.0 High HDL cholesterol, serum 46.0 mg/dL [facility] 35.0 - 55.0 cholesterol, serum 186.0 mg/dL [facility] 0.0 - 200.0 triglyceride, serum, fasting 128.0 mg/dL [facility] 0.0 - 150.0 C-reactive protein, serum 0.2 mg/dL [facility] 0.0 - 0.5 hemoglobin A1C, blood, as % of total hemoglobin 5.4 % [facility] 4.0 - 5.6 HISTORY OF MEDICATION USE Medication Status Instructions Dates Provider Indications Com ments VITAMIN D3 5000 UNIT ORAL CAPSULE active ONE TAB BY MOUTH DAILY Marlene Veloz RN CELEXA 10 MG ORAL TABLET active as needed El Sage MD VALIUM TABLET active as directed Rich Amato SEROQUEL TABLET active as directed Lyudmila Amato SOCIAL HISTORY Date Observation Value Provider smoking status Current every day smoker Severino Engel RN smoking/tobacco cess ation, patient education and counseling yes El Sage MD social history E&M S moking History: P michele currently smokes every day. El Sage MD social history reviewed E&M revi ewed - no changes required El Sage MD number of years as a smoker 15 a Rich Amato smoking history, tot al pack/day 1 iRch Amato cigarette use yes Rich holguin smoking status Current every day smoker M Luis Amato FUNCTIONAL STATUS Date Observation Value Provider periodic limb movement index absent (0) Dedrick Engel RN INSURANCE PROVIDERS Payer name Policy type / Coverage type [place] [employer] MEDICA[employer] Medicaid [id number] ADVANCE DIRECTIVES Name Date DISCUSSED - NO DECISION MADE TREATMENT PLAN Date Name Performer Cardiology El Sage MD Cardiology:neg dd an d tropin, cbc and cmp v agal, has no issues doing construciotgn n eg donya mcginnis s uspect vagal El Sage MD Date Name LIPID PANEL HEMOGLOBIN A1c VITAMIN B12/FOLATE, SERUM PANEL VITAMIN D, 25-HYDROX Y, LC/MS/MS C-REACTIVE PROTEIN ZIO Holter C-REACTIVE PROTEIN VITAMIN D, 25-HYDROX Y, LC/MS/MS HEMOGLOBIN A1c VITAMIN B12 LIPID PANEL STR - Routine Complete Echo HISTORY OF PROCEDURES Procedure Date Procedure Name Provider Procedure Notes S tatus Stress EKG Margarito Earl MD completed KAREN Morales Hookup El Sage MD c ompleted EKG El Sage MD complete d SNOMED-CT: [id number] Current Medications Documented El Sage MD completed
[2024-12-19 15:53] LABS: Alphahydroxymidazolam NEGATIVE ng/mL (<50); Alphahydroxytriazolam NEGATIVE ng/mL (<50); Amphetamines NEGATIVE ng/mL (<500); Barbiturates NEGATIVE ng/mL (<300); Benzodiazepines POSITIVE ng/mL (<100); Cocaine Metabolite NEGATIVE ng/mL (<150); Hydroxyethylflurazepam NEGATIVE ng/mL (<50); Lorazepam NEGATIVE ng/mL (<50); Marijuana Metabolite 164 ng/mL (<5); Marijuana Metabolite POSITIVE ng/mL (<20); Methadone Metabolite NEGATIVE ng/mL (<100); Opiates NEGATIVE ng/mL (<100); Oxidant NEGATIVE mcg/mL (<200); Temazepam NEGATIVE ng/mL (<50); pH 7.5 (4.5-9.0)
== END 2024-12-17 12:40 | disposition home or self-care (01) ==
LOC: ANHBWCLAB 12:40
PROVIDERS: PCP Nurse Practitioner Adult Health; Visit Provider Nurse Practitioner Adult Health
DX: Z79.899 Other long term (current) drug therapy (principal)
CPT/HCPCS: 80299

== ENCOUNTER 2024-12-19 11:48 | Emergency (ER) | payer OTHER, SELFPAY ==
--- OUTSIDE RECORDS SUMMARY | 2024-12-19 11:50 | XMS_ITS | Continuity of Care Document ---
Author Organization [facility] Address [address] [place] [address] [place] [address] Phone Care Team Providers Care Manufacturing Tech Name Role Phone Obinna Andersen MD Unavailable Unavailable Allergies, Adverse Reactions, Alerts Substance Reaction Status Criticality No Known Allergies Active No Inform ation Medications Medication Instructions Dosage Effective Dates (start - stop) Status Comments [place] 7.5 mg-325 mg tablet take 1 tablet [...] Copied on Encounter OFFICE/OUTPA TIENT VISIT, EST [facility], [address], [place], [place], [address], [place] tel:[phone] [facility] anxiety1 (chief complaint) shoulder pain1 (chief complaint) back pain1 (chief complaint) LumbagoGeneralized anxiety disorderPain in right shoulder 7 Ganesh Yeboah. [address], [place], [place], [address] , [place]. [phone] Referring Provider: Trish Fitzpatrick [address], [place], [place], [address]. tel:[phone] PREV VISIT, EST, AGE 18-39 [facility], [address], [place], [place], [address], [place] tel:[phone] [facility] shoulder pian (chief complaint) PHysical (chief complaint) Encounter for general adult medical exam w abnormal findingsSyncope and collapseGeneralized anxiety disorderInsomnia 7 Ganesh Yeboah. [address], [place], [place], [address] , [place]. tel:[phone] Referring Provider: Trish Fitzpatrick [address], [place], [place], [address]. tel:[phone] OFFICE/OUTPA TIENT VISIT, [facility], [address], [place], [place], [address], [place] tel:[phone] [facility] syncope1 (chief complaint) back pain1 (chief complaint) anxiety1 (chief complaint) Syncope and collapseEpilepsyLum bagoGeneralized anxiety disorder 7 Ganesh Yeboah. [address], [place], [place], [address] , [place]. tel:[phone] Referring Provider: Trish Fitzpatrick [address], [place], [place], [address]. tel:[phone] OFFICE/OUTPA TIENT VISIT, [facility], [address], [place], [place], [address], [place] tel:[phone] [facility] syncope1 (chief complaint) anxiety1 (chief complaint) back pain1 (chief complaint) Syncope and collapseInsomniaGen eralized anxiety disorderLumbago 201 7 Ganesh Yeboah. [address], [place], [place], [address] , [place]. tel:[phone] Referring Provider: Trish Fitzpatrick [address], [place], [place], [address]. tel:[phone] OFFICE/OUTPA TIENT VISIT, [facility], [address], [place], [place], [address], [place] tel:[phone] [facility] anxiety1 (chief complaint) LBP (chief complaint) LumbagoGeneralized anxiety disorder 0 7 Ganesh Yeboah. [address], [place], [place], [address] , [place]. tel:[phone] Referring Provider: Trish Fitzpatrick [address], [place], [place], [address]. tel:[phone] OFFICE/OUTPA TIENT VISIT, [facility], [address], [place], [place], [address], [place] tel:[phone] [facility] anxiety1 (chief complaint) toothache1 (chief complaint) back pain1 (chief complaint) LumbagoGeneralized anxiety disorderInsomniaAty pical facial pain 0201 6 Ganesh Pacheco [address], [place], [place], [address] , [place]. tel:[phone] Referring Provider: Trish Fitzpatrick [address], [place], [place], [address]. tel:[phone] OFFICE/OUTPA TIENT VISIT, [facility], [address], [place], [place], [address], [place] tel:[phone] [facility] back pain1 (chief complaint) STD (chief complaint) anxiety1 (chief complaint) Generalized anxiety disorderLumbagoEnco unter for STD screening 6 Ganesh Yeboah. [address], [place], [place], [address] , [place]. [phone] Referring Provider: Trish Fitzpatrick [address], [place], [place], [address]. tel:[phone] OFFICE/OUTPA TIENT VISIT, [facility], [address], [place], [place], [address], [place] tel:[phone] [facility] anxiety1 (chief complaint) lumbago1 (chief complaint) InsomniaGeneralized anxiety disorderLumbago 6 Ganesh Yeboah. [address], [place], [place], [address] , [place]. [phone] Referring Provider: Trish Fitzpatrick [address], [place], [place], [address]. tel:[phone] OFFICE/OUTPA TIENT VISIT, [facility], [address], [place], [place], [address], [place] tel:[phone] [facility] anxiety1 (chief complaint) depression 1 (chief complaint) Generalized anxiety disorderInsomnia 6 Ganesh Pacheco [address], [place], [place], [address] , [place]. [phone] Referring Provider: Trish Fitzpatrick [address], [place], [place], [address]. tel:[phone] OFFICE/OUTPA TIENT VISIT, [facility], [address], [place], [place], [address], [place] tel:[phone] [facility] anxiety1 (chief complaint) hand pain1 (chief complaint) lab (chief complaint) STD (chief complaint) Generalized anxiety disorderInsomniaPai n in right handEncounter for STD screening 6 Ganesh Pacheco [address], [place], [place], [address] , [place]. tel:[phone] Referring Provider: Obinna Andersen, [address], [place], [place], [address]. tel:[phone] PREV VISIT, NEW, AGE 18-39 [facility], [address], [place], [place], [address], [place] tel:[phone] [facility] Medicine Physical (chief complaint) Encntr for general adult medical exam w/o abnormal findings 6 Ganesh Yeboah. [address], [place], [place], [address] , [place]. tel:[phone] Referring Provider: Obinna Andersen, Trish Carrillo [facility] A, [place], [place], [address]. tel:[phone] Family History Family Member Type Diagnosis Age At Onset Brother Problem (finding) Alive and well Father Problem (finding) back pain Mother Problem (finding) Alive and well Father Problem (finding) Alive and well Payers Payer name Insurance type Covered libertarian ID Authoriza tion(s) No Information Social History [...] TEST ordered Referral Referred To: JOSEE VALLE [id number] [facility]
[address] [place], [place], [phone] Ordered: Referrals: JOSEE VALLE. Evaluate and treat [...] Mental Status Date Cognitive Assessment Orientation - [place] ed to time, place, person, situation.
--- OUTSIDE RECORDS SUMMARY | 2024-12-19 11:50 | XMS_ITS | Clinical Summary ---
Author Organization [facility] Address [address] [place] [address] Phone Care Team Providers Care Dog Pound Attendant Name Role Phone Sherlyn Mckeon APRN Primary Care Provider [phone] Allergies No known active allergies Medications busPIRone [...] Active fluticasone (FLONASE) 50 MCG/ACT Suspension 1 Anthony by Nasal route daily. Use in each [...] Sex Assigned at Male 08/30/2024 3:56 AM MEDICAL TRANSCRIPTION Legal Sex Male 7:58 PM CDT Gender Identity Male 08/30/2024 3:56 AM MEDICAL TRANSCRIPTION Sexual Orientation Not on file Last Filed Vital Signs Vital Sign Reading Time Taken Comments Blood Pressure 119/75 09/01/2024 12:44 PM MEDICAL TRANSCRIPTION Pulse 93 09/01/2024 12:44 PM MEDICAL TRANSCRIPTION Temperature 37.1 C (98.7 F) 09/01/2024 12:44 PM MEDICAL TRANSCRIPTION Respiratory Rate 16 09/01/2024 12:44 PM MEDICAL TRANSCRIPTION Oxygen Saturation 99% 09/01/2024 12:44 PM MEDICAL TRANSCRIPTION Inhaled Oxygen Concentration - - Weight 68 kg (150 lb) 09/01/2024 12:44 PM MEDICAL TRANSCRIPTION Height 172.7 cm (5' 8 ) 09/01/2024 12:44 PM MEDICAL TRANSCRIPTION Body Mass Index 22.81 09/01/2024 12:44 PM MEDICAL TRANSCRIPTION Plan of Treatment Health Maintenance Due Date [...] this topic Insurance MEDICAID WHITE Care Teams Dog Pound Attendant Relationship Specialty Start Date End Date Sherlyn Mckeon APRN PCP - General Advanced Practice Nurse 03/27/21
--- OUTSIDE RECORDS SUMMARY | 2024-12-19 11:50 | XMS_ITS | CONTINUITY OF CARE DOCUMENT ---
Author Name emili mock Address Unknown Organization [facility] Address [address] [place] [address] Phone [phone] Care Team Providers Care Drop Hammer Mechanic Name Role Phone Alona PERALTA, El Unavailable PROBLEMS Condition Status Date Provider Notes Vitamin [...] In-person encounter Office Visit El Sage MD Mobile Office IRBBBInsomniaAnxiety disorderBACK PAIN;CHRONICTobacco abuseSyncopeETOH? Sleep apnea VITAL SIGNS Date Observation Value Provider blood pressure, diastolic 70 mm[Hg] Ángel Engel RN blood pressure, systolic 104 mm[Hg] Dedrick Engel RN Body Mass Index (Ratio) 24.25 kg/m2 Jere Sage MD blood pressure, resting No Che Amato blood pressure, diastolic 78 mm[Hg] Agnes Amato blood pressure, systolic 136 mm[Hg] Alla Amato oxygen saturation, oximetry 98 % Rich Amato [...] Amato smoking history, tot al pack/day 1 Rich Amato cigarette use yes Rich holguin smoking status Current every day smoker M Luis Amato FUNCTIONAL STATUS Date Observation Value Provider periodic limb movement index absent (0) Dedrick Engel RN INSURANCE PROVIDERS Payer name Policy type / Coverage type [place] red constitution party ID WHITE MEDICAID Medicaid [id number] ADVANCE DIRECTIVES Name Date DISCUSSED - NO [...] EKG El Sage MD complete d SNOMED-CT: [id number] Current Medications Documented El Sage MD completed
--- OUTSIDE RECORDS SUMMARY | 2024-12-19 11:52 | XMS_ITS | CONTINUITY OF CARE DOCUMENT ---
Author Name emili mock Address Unknown Organization [facility] Address [address] [place] [address] Phone [phone] Care Team Providers Care Riding Silks Custodian Name Role Phone Alona PERALTA, El Unavailable [...] In-person encounter Office Visit El Sage MD [place] Office IRBBBInsomniaAnxiety disorderBACK PAIN;CHRONICTobacco abuseSyncopeETOH? Sleep apnea [...] Payer name Policy type / Coverage type [place] red republican ID WHITE MEDICAID Medicaid [id number] ADVANCE DIRECTIVES Name Date DISCUSSED - NO [...] EKG El Sage MD complete d SNOMED-CT: [id number] Current Medications Documented El Sage MD completed
--- OUTSIDE RECORDS SUMMARY | 2024-12-19 11:52 | XMS_ITS | Continuity of Care Document ---
Author Organization [facility] Address [address] [place] [address] [place] [address] Phone Care Team Providers Care Candle Wicker Name Role Phone Obinna Andersen MD Unavailable Unavailable Allergies, Adverse Reactions, Alerts Substance Reaction Status Criticality No Known Allergies Active No Inform ation Medications Medication Instructions Dosage Effective Dates (start - stop) Status Comments Tylenol-Codeine #4 300 mg-60 mg tablet take 1 tablet by oral route every 6 hours as needed - Active PRN for pain, avoiid driving or operate machines [place] 7.5 mg-325 mg tablet take 1 tablet by oral route every 4 - 6 hours as needed for pain 1 tablet - Active PRN for pain, avoid driving or operate machines Valium 10 mg tablet take 1 tablet by oral route 2 times every day as needed 10 MG - Active avoid drivin g or operate machines Seroquel 50 mg tablet take 1 tablet by oral route every bedtime 50 MG - Active Celexa 10 mg tablet take 1 tablet [...] Copied on Encounter OFFICE/OUTPA TIENT VISIT, EST [facility], [address], [place], [place], [address], [place] tel:[phone] [facility] anxiety1 (chief complaint) shoulder pain1 (chief complaint) back pain1 (chief complaint) LumbagoGeneralized anxiety disorderPain in right shoulder 7 Ganesh Yeboah. [address], [place], [place], [address] , [place]. [phone] Referring Provider: Trish Fitzpatrick [address], [place], [place], [address]. tel:[phone] PREV VISIT, EST, AGE 18-39 [facility], [address], [place], [place], [address], [place] tel:[phone] [facility] shoulder pian (chief complaint) PHysical (chief complaint) Encounter for general adult medical exam w abnormal findingsSyncope and collapseGeneralized anxiety disorderInsomnia 7 Ganesh Yeboah. [address], [place], [place], [address] , [place]. tel:[phone] Referring Provider: Trish Fitzpatrick [address], [place], [place], [address]. tel:[phone] OFFICE/OUTPA TIENT VISIT, [facility], [address], [place], [place], [address], [place] tel:[phone] [facility] syncope1 (chief complaint) back pain1 (chief complaint) anxiety1 (chief complaint) Syncope and collapseEpilepsyLum bagoGeneralized anxiety disorder 7 Ganesh Yeboah. [address], [place], [place], [address] , [place]. tel:[phone] Referring Provider: Trish Fitzpatrick [address], [place], [place], [address]. tel:[phone] OFFICE/OUTPA TIENT VISIT, [facility], [address], [place], [place], [address], [place] tel:[phone] [facility] syncope1 (chief complaint) anxiety1 (chief complaint) back pain1 (chief complaint) Syncope and collapseInsomniaGen eralized anxiety disorderLumbago 201 7 Gnaesh Yeboah. [address], [place], [place], [address] , [place]. tel:[phone] Referring Provider: Trish Fitzpatrick [address], [place], [place], [address]. tel:[phone] OFFICE/OUTPA TIENT VISIT, [facility], [address], [place], [place], [address], [place] tel:[phone] [facility] anxiety1 (chief complaint) LBP (chief complaint) LumbagoGeneralized anxiety disorder 0 7 Ganesh Yeboah. [address], [place], [place], [address] , [place]. tel:[phone] Referring Provider: Trish Fitzpatrick [address], [place], [place], [address]. tel:[phone] OFFICE/OUTPA TIENT VISIT, [facility], [address], [place], [place], [address], [place] tel:[phone] [facility] anxiety1 (chief complaint) toothache1 (chief complaint) back pain1 (chief complaint) LumbagoGeneralized anxiety disorderInsomniaAty pical facial pain 0201 6 Ganesh Pacheco [address], [place], [place], [address] , [place]. tel:[phone] Referring Provider: Trish Fitzpatrick [address], [place], [place], [address]. tel:[phone] OFFICE/OUTPA TIENT VISIT, [facility], [address], [place], [place], [address], [place] tel:[phone] [facility] back pain1 (chief complaint) STD (chief complaint) anxiety1 (chief complaint) Generalized anxiety disorderLumbagoEnco unter for STD screening 6 Ganesh Yeboah. [address], [place], [place], [address] , [place]. [phone] Referring Provider: Trish Fitzpatrick [address], [place], [place], [address]. tel:[phone] OFFICE/OUTPA TIENT VISIT, [facility], [address], [place], [place], [address], [place] tel:[phone] [facility] anxiety1 (chief complaint) lumbago1 (chief complaint) InsomniaGeneralized anxiety disorderLumbago 6 Ganesh Yeboah. [address], [place], [place], [address] , [place]. [phone] Referring Provider: Trish Fitzpatrick [address], [place], [place], [address]. tel:[phone] OFFICE/OUTPA TIENT VISIT, [facility], [address], [place], [place], [address], [place] tel:[phone] [facility] anxiety1 (chief complaint) depression 1 (chief complaint) Generalized anxiety disorderInsomnia 6 Ganesh Pacheco [address], [place], [place], [address] , [place]. [phone] Referring Provider: Trish Fitzpatrick [address], [place], [place], [address]. tel:[phone] OFFICE/OUTPA TIENT VISIT, [facility], [address], [place], [place], [address], [place] tel:[phone] [facility] anxiety1 (chief complaint) hand pain1 (chief complaint) lab (chief complaint) STD (chief complaint) Generalized anxiety disorderInsomniaPai n in right handEncounter for STD screening 6 Ganesh Pacheco [address], [place], [place], [address] , [place]. tel:[phone] Referring Provider: Obinna Andersen, [address], [place], [place], [address]. tel:[phone] PREV VISIT, NEW, AGE 18-39 [facility], [address], [place], [place], [address], [place] tel:[phone] [facility] Medicine Physical (chief complaint) Encntr for general adult medical exam w/o abnormal findings 6 Ganesh Yeboah. [address], [place], [place], [address] , [place]. tel:[phone] Referring Provider: Obinna Andersen, Trish Carrillo [facility] [address], [place], [place], [address]. tel:[phone] Family History Family Member Type Diagnosis Age At Onset Brother Problem (finding) Alive and well Father Problem (finding) back pain Mother Problem (finding) Alive and well Father Problem (finding) Alive and well Payers Payer name Insurance type Covered democrat ID Authoriza tion(s) No Information Social History [...] TEST ordered Referral Referred To: JOSEE VALLE [id number] [facility]
[address] [place], [place], [phone] Ordered: Referrals: JOSEE VALLE. Evaluate and treat ordered Referral Ordered: MRI LUMBAR SPINE W/O DYE ordered Referral Ordered: Physical Therapy (related to Lumbago) ordered Referral Referred To: Physical Therapy Ordered: Referrals: Physical Therapy. Evaluate and treat ordered Referral Ordered: LUMBAR XRAY AP AND LAT ONLY ordered History Of Present Illness Encounter Date Complaint History Of Prese nt Illness anxiety1 Pt has chronic a nxeity and depression. Pt takes celexa and valium and doing ok. Pt denies any suicidal or homicdial thought. Pt denies any cyring spells shoulder pain1 Pt is s/p 4 week s of right Ac joint sprain. Pt seen ortho Pt still c/o rather severe pain. Pt states that tylenol codeine and ultram do not help his pain. Pt wants more norco for right shoulder pain back pain1 Pt has chronic l ow back pain Pt denies any loss bladder control. Pt failed PT. Pt take tylenol #4 PRN for pain and doing ok PT denies any worsening pain Pt denies any loss of bladder control PHysical Pt needs annual physical. Pt has [...] eEG and he is not taking keppra. shoulder pian Pt c/o right AC joint [...] right shoulder pain is worse with movement back pain1 Pt has chornic l ow back pain. Pt c/o sciatica and leg numbness. Pt states that his back pain is getting worse. Pt still has not done PT. Pt also wants to try stronger pain meds. Pt denies any loss of bowel or bladder control anxiety1 Pt has chornic a nxiety and depression. pt states that he has been having more anxeity attacks and he wants stronger meds than valium for anxiety. Pt denies any suicdial or homicidal thought ,Pt denies any crying spells syncope1 Pt has seizure v s syncope episode x 1 recently. Pt denies any further episodes. Pt did not do EEG. Pt is noncompliant with keppra ,Pt only takes once per day if that. Pt also is seeing cardiology and he is getting cariac holter monitor and also echo to rule out any cardiac etiology for syncope. Pt denies any chest pain syncope1 Pt recently was eating lunch and felt very hot and he acutally passed out with jerking and post episode confusion. Pt states that this never happened in the past Pt went to ER and had negative head Ct per patient and also negative work up. Pt denies any chest pain or SOB. anxiety1 Pt has chronic a nxiety and depression. Pt takes seroquel and celexa and valium and doing ok Pt denies any suicidal or homicdial thought back pain1 Pt has low back pain. Pt deniesany loss of bladder control. Pt denies any urine retention. Pt takes tylenol #3 PRN for pain and doing ok anxiety1 Pt has chronic a nxiety and depression Pt takes celexa and valium and doing ok Pt denies any suicidal or homicidal thought. Pt denies any crying spells LBP Pt has chronic l ow back pain Pt denies any loss of bowel ro bladder control or worsening pain MRI denied by insurance anxiety1 Pt has chronic a nxiety and depression and insomnia. Pt takes celexa and valium and seroquel and doing ok. Pt denies any suicidal or homicdial thought Pt denies any crying spells toothache1 Pt has right bonnie e front toothache for two weeks. Pt had part of his tooth chipped off recently and he has been having nerve pain around tooth and also gum area whici is causing headache. Pt failed OTC meds back pain1 Pt c/o chronic a nd [...] any loss of bowel or bladd ercontrol back pain1 Pt has chronic l ow [...] states that working hurt his back worse STD Pt hd STD screen ing Pt [...] Pt denies any suicidal or homicidal thought anxiety1 Pt has chronic a nxiety and [...] labor recenlty which exacerbated his back pain. anxiety1 Pt has chronic a nxiety and mild depression and insomnia and he is on seroquel and valium and doing much better. His mood is stable and improving. pt states that he has some nightmare with seroquel. Pt states that seroquel is helping his sleeping. Pt still feels depressed and angery easilyi. Pt denies any suicidal or homicdial thought depression1 Pt feels mildly depressed. Pt feels [...] Pt denies any suicidal or homicidal thought hand pain1 Pt told me he lopez d negative right hand xray in ER. Pt had laceration and he underwent glue and he was given abx also. Pt states that his right hand is getting better and wound healed. Pt denies and hand pain lab Pt had lab done which is all normal STD Pt wants STD scr eening Pt denies any symptoms Physical Pt needs annual physical. Pt recently [...] Mental Status Date Cognitive Assessment Orientation - [place] ed to time, place, person, situation.
[2024-12-19 11:53] VITALS: BP 132/84; PULSE 98; RESP 16; TEMP 37.1; O2SAT 100
--- NOTE | 2024-12-19 12:37 | ED.GENADULT ---
HPI - General Adult General Chief complaint: Dental/Oral Stated complaint: Toothache Source: patient Mode of arrival: ambulatory Limitations: no limitations History of Present Illness HPI narrative: Patient presents for evaluation of right lower dental pain since yesterday. Pain is constant, throbbing, and severe. He has been taking ibuprofen without considerable improvement thereafter. In the past he has responded well to hydrocodone. He has right-sided mandibular swelling present. He denies any fever, chills, nausea, vomiting. He does smoke. Related Data Allergies Allergy/AdvReac Type Severity Reaction Status Date / Time No Known Allergies Allergy Verified 12/19/24 11:50 Review of Systems Review of Systems: CONSTITUTIONAL: Denies fever, chills, or sweats. EYES: Denies visual changes, redness, or discharge. ENT: Reports right lower dental pain with right-sided facial swelling. Denies rhinorrhea, congestion, sore throat, or otalgia. CARDIOVASCULAR: Denies chest pain, palpitations, or edema. RESPIRATORY: Denies cough or dyspnea. GASTROINTESTINAL: Denies abdominal pain, nausea, vomiting, or diarrhea. GENITOURINARY: Denies dysuria or hematuria. SKIN: Denies rash or itching. MUSCULOSKELETAL: Denies back pain, joint pain, or myalgia. NEUROLOGIC: Denies headache, numbness, dizziness, or weakness. PSYCHIATRIC: Denies anxiety or depression. [facility] Past Medical History Medical History Migraine Headache Allergies Anxiety Exposure to COVID-19 virus Surgical History Surgical History No history of previous surgery Family History Family History Father Depression Thyroid cancer Mother Disorder of thyroid History of ETOH abuse Social History Social History Smoking status: Current every day smoker Tobacco type: cigarettes Alcohol intake: current Alcohol use details: Beer Vodka Substance use: unknown Lack of Transportation: No Lack of Food: Sometimes True Current Housing: I Have Housing Concerned About Future Housing: No Difficulty Paying Gas/Electric Bills: YES Difficulty Paying for Meds: No Currently Unemployed: YES Education: High School Diploma/GED Difficulty w/ Childcare or Family Care: No Living arrangements: with family Occupation/Education: occupation Additional occupation/education comments: [employer] Gender identity (if verbalized by the patient): Male Exam Narrative: GENERAL: Well-appearing, well-nourished, and in no acute distress. HEAD: Normocephalic, atraumatic. EYES: PERRLA and EOMI. ENT: Nares clear, no rhinorrhea or epistaxis. Mucous membranes moist. Tooth #29 is fractured. There is swelling in the gumline on the right lower side. There is no palpable area of fluctuance. Bilateral TMs pearly self nonbulging NECK: Supple. No adenopathy or masses. No carotid bruits or JVD CHEST: Clear to auscultation. No respiratory distress. No wheezes rales or rhonchi HEART: Regular rate and rhythm. No murmur heard. Normal peripheral pulses. ABDOMEN: Soft, nontender, nondistended, normal active bowel sounds. EXTREMITIES: Normal range of motion. No edema. SKIN: Warm, dry, no rash. NEURO: No focal deficits. Alert and oriented x3. PSYCH: Normal mood and affect. Course Course Emergency Course: This is a 39 yr old male who presented for evaluation of right lower dental pain with right sided facial swelling. There is no apparent drainable fluid collection. Will tx with PCN. Pain has not responded to NSAIDs. Will dc with small qty of hydrocodone. Pt provided with paper script as it was not able to be sent electronically. Follow up with primary provider and dentist. Go to the ER for worsening symptoms. Patient in agreement with plan of care. Level of Care: Express Care Visit Vital Signs Vital signs: Vital Signs Temperature 37.1 C 12/19/24 11:53 Pulse Rate 98 12/19/24 11:53 Respiratory Rate 16 12/19/24 11:53 Blood Pressure 132/84 12/19/24 11:53 Pulse Oximetry 100 12/19/24 11:53 Oxygen Delivery Room Air 12/19/24 11:53 Temperature 37.1 C 12/19/24 11:53 Pulse Rate 98 12/19/24 11:53 Respiratory Rate 16 12/19/24 11:53 Blood Pressure 132/84 12/19/24 11:53 Pulse Oximetry 100 12/19/24 11:53 Oxygen Delivery Room Air 12/19/24 11:53 Medical Decision Making Vital Signs Vital Signs: Vital Signs Temperature 37.1 C 12/19/24 11:53 Pulse Rate 98 12/19/24 11:53 Respiratory Rate 16 12/19/24 11:53 Blood Pressure 132/84 12/19/24 11:53 Pulse Oximetry 100 12/19/24 11:53 Oxygen Delivery Room Air 12/19/24 11:53 Temperature 37.1 C 12/19/24 11:53 Pulse Rate 98 12/19/24 11:53 Respiratory Rate 16 12/19/24 11:53 Blood Pressure 132/84 12/19/24 11:53 Pulse Oximetry 100 12/19/24 11:53 Oxygen Delivery Room Air 12/19/24 11:53 Discharge Plan Discharge Clinical Impression: Fracture of tooth, Dental infection Patient Disposition: Home Condition: Stable Instructions: Antibiotic Form, Toothache (ED) Patient Language: Moldovan Prescriptions: New penicillin V potassium 500 mg tablet 500 mg PO Q6H Qty: 40 0RF No Action montelukast 10 mg tablet See Rx Instructions .ROUTE .COMPLEX Qty: 90 3RF Dose Instruction: TAKE 1 TABLET BY MOUTH EVERY DAY AT BEDTIME Rx Instructions: TAKE 1 TABLET BY MOUTH EVERY DAY AT BEDTIME quetiapine 50 mg tablet See Rx Instructions .ROUTE .COMPLEX Qty: 90 0RF Dose Instruction: TAKE 1 TABLET BY MOUTH EVERY DAY AT BEDTIME NEEDED FOR SLEEP Rx Instructions: TAKE 1 TABLET BY MOUTH EVERY DAY AT BEDTIME NEEDED FOR SLEEP tadalafil 20 mg tablet See Rx Instructions .ROUTE .COMPLEX Qty: 30 0RF Dose Instruction: TAKE ONE TABLET BY MOUTH APPROXIMATELY 30 MINUTES BEFORE SEXUAL ACTIVITY. DO NOT USE MORE THAN ONE DOSE DAILY. Rx Instructions: TAKE ONE TABLET BY MOUTH APPROXIMATELY 30 MINUTES BEFORE SEXUAL ACTIVITY. DO NOT USE MORE THAN ONE DOSE DAILY. cyclobenzaprine 5 mg tablet See Rx Instructions .ROUTE .COMPLEX Qty: 90 0RF Dose Instruction: TAKE 1 TABLET BY MOUTH THREE TIMES DAILY NEEDED FOR MUSCLE SPASM Rx Instructions: TAKE 1 TABLET BY MOUTH THREE TIMES DAILY NEEDED FOR MUSCLE SPASM alprazolam 0.5 mg tablet 0.5 mg PO BID PRN (Reason: anxiety) Qty: 60 0RF Follow-up/Referrals: Vincent,Sherlyn, [facility]IPPER [Primary Care Provider] - Time of Disposition: 12:31
== END 2024-12-19 12:36 | disposition home or self-care (01) ==
PROVIDERS: Emergency Provider Nurse Practitioner; PCP Nurse Practitioner Adult Health
DX: M84.48XA Pathological fracture, other site, initial encounter for fracture (principal); K04.7 Periapical abscess without sinus; F17.210 Nicotine dependence, cigarettes, uncomplicated; Z79.1 Long term (current) use of non-steroidal anti-inflammatories (NSAID)
CPT/HCPCS: 99213; G0463